=== PATIENT | male | born 1960 | race Caucasian/White ===

== ENCOUNTER 2020-08-08 17:01 | Emergency (ER) | payer BC ==
[~2020-08-08] VITALS: Ht 170.2 cm; Wt 93.3 kg
[2020-08-08 17:14] VITALS: BP 155/93
--- NOTE | 2020-08-08 19:02 | NUR ---
report given to crystal carney.
[2020-08-08] MEDS ORDERED: KETOROLAC 30 MG/1 ML IM ONE (19:30)
[2020-08-08] MEDS ORDERED: LIDODERM 5% PATCH TD ONE ×2 (19:30→19:55)
[2020-08-08] MEDS ORDERED: KETOROLAC 30 MG/1 ML ONE (19:55)
[2020-08-09] MEDS ORDERED: LIDODERM REMOVE PATCH NOTE XX ONE (07:30)
== END 2020-08-08 20:47 | disposition home or self-care (01) ==
LOC: ED 20:00
DX: S39.012A Strain of muscle, fascia and tendon of lower back, initial encounter (principal); R05 Cough; X58.XXXA Exposure to other specified factors, initial encounter; Y93.89 Activity, other specified; Y92.89 Other specified places as the place of occurrence of the external cause; Y99.8 Other external cause status
CPT/HCPCS: 96372; 99283; J1885